=== PATIENT | male | born 1940 | race Caucasian/White ===

== ENCOUNTER → 2018-04-16 13:42 | Outpatient (CLI) | payer MEDICARE, OTHER, SELFPAY ==
--- NOTE | 2018-04-16 | DI.ECHO.S_ITS ---
[place] [facility] +---------+ : : [address] : : : : [id number] : : : : Phone: [phone]+ Echocardiogram Report + + :Name: THOMAS OSULLIVAN Study Date: 04/16/2018 Height: 69 in : :[facility] Exam Location: IS Weight: 212 lb : : Gender: Male BSA: 2.1 m2 : :: 1940 Age: 77 yrs BP: 122/58 mmHg: :Reason For Study: SOB : :Ordering Physician: Dr. Nicole : :Kian Performed By: Isa Diaz : :Referring: JOSEPHINE CESPEDES : + + Interpretation Summary The left ventricle is normal in size. The ejection fraction is estimated to be 60-65%. There has been no significant change in LV EF since the previous study. The right ventricle is mildly dilated. The right ventricular systolic function is normal. There is moderate mitral regurgitation. Compared to the prior echo study, there has been no change in the severity of mitral regurgitation. There is mild to moderate tricuspid regurgitation. Compared to the prior echo exam, there has been no change in TR severity. The right ventricular systolic pressure is estimated to be at least 30 mmHg based on an estimated right atrial pressure of 3 mm Hg. Mild atherosclerotic plaque(s) in the aortic arch. Incidental finding, mutiple hyperechoic mass like structures seen in the liver. These were not visualized on previous exam. Consider US LIVER. Procedure: A two-dimensional transthoracic echocardiogram with color flow and Doppler was performed. The study quality was technically adequate. Comparison is made with the echocardiogram of 02/20/16. The patient had occasional PVCs during the exam. The patient had occasional PACs during the exam. The patient was in sinus bradycardia with heart rates between 47-52 bpm during the exam. Left Ventricle: The left ventricle is normal in size. Proximal septal thickening is noted. There is no echo evidence for significant left ventricular outflow tract obstruction. There is no thrombus. The ejection fraction is estimated to be 60-65%. There has been no significant change since the previous study. There are no focal wall motion abnormalities. Diastolic parameters suggest a relaxation abnormality of the left ventricle, consistent with probable normal filling pressures. Right Ventricle: The right ventricle is mildly dilated. The right ventricular systolic function is normal. Atria: The left atrium is moderately dilated. The left atrium has remained unchanged in size since the prior echo exam. Right atrial size is normal. There is no Doppler evidence for an interatrial shunt. Mitral Valve: The mitral valve leaflets appear mildly thickened, but open well. There is mild mitral annular calcification. The mitral valve leaflets are mildly calcified. There is moderate mitral regurgitation. Compared to the prior echo study, there has been no change in the severity of mitral regurgitation. Aortic Valve: The aortic valve is trileaflet. There is mild aortic valve sclerosis. The aortic valve opens well. There is no aortic valve stenosis. There is trace aortic regurgitation. Tricuspid Valve: Fatty tricuspid annulus. There is mild to moderate tricuspid regurgitation. The right ventricular systolic pressure is estimated to be at least 30 mmHg based on an estimated right atrial pressure of 3 mm Hg. Compared to the prior echo exam, there has been no change in TR severity. Pulmonic Valve: The pulmonic valve is not well visualized. There is a trace or physiologic amount of pulmonic regurgitation. Great Vessels: The aortic root is normal size. The ascending aorta is normal in size. The aortic arch is normal in size. Mild atherosclerotic plaque(s) in the aortic arch. The pulmonary is not well visualized. The IVC is of normal diameter and collapses greater than 50% with a sniff. This suggests a low right atrial pressure of 3 mm Hg. Pericardium/ Pleura There is no pericardial effusion. There is no pleural effusion. MMode/2D Measurements & Calculations LVIDd: 4.5 cm LVOT diam: 2.3 cm LVIDs: 3.5 cm Ao root diam: 3.7 cm FS: 24.1 % asc Aorta Diam: 3.6 cm EPSS: 0.51 cm Ao Arch Diam (Prox Trans): 3.2 cm IVSd: 0.89 cm LVPWd: 1.0 cm LV rosario. diameter/BSA (cm/m^2): 2.1 LV sys. diameter/BSA (cm/m^2): 1.6 LA A2 area: 29.7 cm2 RA long axis: 5.6 cm LA A4 area: 24.0 cm2 RA area: 15.4 cm2 LA length (vol): 6.0 cm RA vol: 36.0 ml LA vol: 101.1 ml RA : 17.0 ml/m2 LA vol index: 47.7 ml/m2 IVC diam: 1.6 cm RVD1 (basal): 4.3 cm RVD2 (mid): 3.3 cm TAPSE: 1.5 cm Doppler Measurements & Calculations Ao V2 max: 93.2 cm/sec LVOT Max Garrett: 70.4 cm/sec Ao V2 mean: 64.0 cm/sec LV V1 max P.0 mmHg Ao max P.5 mmHg LV V1 VTI: 14.6 cm Ao mean P.8 mmHg LEN(I,D): 3.6 cm2 Ao V2 VTI: 17.0 cm LEN(V,D): 3.2 cm2 sev ratio: 0.85 LEN indexed to BSA (cm^2/m^2): 1.7 MV E max garrett: 57.1 cm/sec TR max garrett: 259.2 cm/sec MV A max garrett: 62.4 cm/sec TR max P.9 mmHg MV E/A: 0.92 PA V2 max: 68.6 cm/sec Med Peak E' Garrett: 6.6 cm/sec PA V2 mean: 42.4 cm/sec E/E' med: 8.6 PA mean P.86 mmHg Lat Peak E' Garrett: 7.3 cm/sec PA pr(Accel): 31.6 mmHg E/E' lat: 7.9 E/e' average: 8.2 MV dec time: 0.22 sec MV P1/2t: 64.2 msec MV P1/2t max garrett: 56.8 cm/sec MVA(P1/2t): 3.4 cm2 Reading Physician:PM
== END ==
PROVIDERS: Family Provider Internal Medicine Cardiovascular Disease; PCP Family Medicine; Visit Provider Family Medicine
DX: I08.1 Rheumatic disorders of both mitral and tricuspid valves (principal); R06.02 Shortness of breath; I70.0 Atherosclerosis of aorta; R16.0 Hepatomegaly, not elsewhere classified
CPT/HCPCS: 93306

== ENCOUNTER → 2018-04-26 17:59 | Outpatient (CLI) | payer MEDICARE, OTHER, SELFPAY ==
--- NOTE | 2018-04-30 07:33 | PM.PFT.1 ---
Pulmonary Function Test Referral & Results Date Patient Seen: 04/26/18 Requesting provider: Sylvester Langston Indication: Dyspnea upon exertion Results: The spirometry demonstrates an FVC of 1.92 L which is 47% of predicted. The FEV1 was measured at 1.27 L which is 43% of predicted. The FEV1/FVC ratio was 66 which is 91% of predicted. Following the administration of bronchodilator there was 17% improvement in FEV1 and a 67% improvement in FEF 25-75%. Lung volumes show an SVC of 2.03 L which is 47% of predicted. The diffusing capacity was measured at 18.53 which is 59% of predicted. No hemoglobin value was provided, so no correction for potential anemia could be made, if appropriate. The maximum voluntary ventilation was significantly reduced Interpretation: This study demonstrates moderately severe obstructive lung disease with some limited evidence of benefit following bronchodilator based on 67% improvement in FEF 25-75% which would indicate small airway flow improvement there is also improvement in FEV1 although this fails to meet the criteria for significance at only 17% There is also moderately severe restrictive lung disease based on reduction SVC There is also moderately severe reduction in diffusing capacity suggesting significant disease at the capillary alveolar level Altogether this is consistent with moderately severe COPD Clinical correlation suggested
== END ==
PROVIDERS: Family Provider Internal Medicine Cardiovascular Disease; PCP Family Medicine; Visit Provider Family Medicine
DX: R06.09 Other forms of dyspnea (principal)
CPT/HCPCS: 94010; 94060; 94726; 94729

== ENCOUNTER → 2018-04-28 10:45 | Outpatient (CLI) | payer MEDICARE, OTHER, SELFPAY ==
--- NOTE | 2018-04-28 | DI.RAD.S_ITS ---
PROCEDURE: XR CHEST 2V INDICATIONS: DYSPNEA ON EXERTION TECHNIQUE: 2 views of the chest were acquired. COMPARISON: [facility], , CHEST 2 VIEW, 10/24/2016, 13:31. FINDINGS: Surgical changes and devices: None. Lungs and pleura: No pleural effusions or pneumothorax. Consolidative opacity measuring 5.7 x 3.2 cm projecting in left upper lobe. This appears new since prior study. The lungs are hyperinflated. Mediastinum: Mediastinal contours are normal. Heart size is normal. Bones and chest wall: No suspicious bony abnormalities. Soft tissues appear unremarkable. IMPRESSION: Masslike consolidation projecting in the left upper lobe. Recommend further evaluation with noncontrast chest CT as this is suspicious for neoplasm. Please correlate clinically. Dictated by: Landon Gross M.D. on 04/28/2018 at 13:21 Approved by: Landon Gross M.D. on 04/28/2018 at 13:26
== END ==
PROVIDERS: Family Provider Internal Medicine Cardiovascular Disease; PCP Family Medicine; Visit Provider Family Medicine
DX: R06.09 Other forms of dyspnea (principal); R91.1 Solitary pulmonary nodule
CPT/HCPCS: 71046

== ENCOUNTER → 2018-04-29 10:04 | Outpatient (CLI) | payer MEDICARE, OTHER, SELFPAY ==
--- NOTE | 2018-04-29 | DI.US.S_ITS ---
PROCEDURE: US ABDOMEN COMPLETE INDICATIONS: LIVER MASS SEEN ON ECHOCARDIOGRAM TECHNIQUE: Real-time scanning was performed of the abdominal and retroperitoneal organs, with image documentation. COMPARISON: [facility], CT, IVP (ABD & PEL WWO CONTRAST), 10/06/2016, 9:05. FINDINGS: Liver: Innumerable heterogeneously echogenic and solid-appearing masses are seen scattered throughout the visualized liver parenchyma with the largest lesion measures approximately 4.6 cm in size in right lobe of liver. Hepatomegaly is seen with the liver length measures 23 cm. No gross intrahepatic biliary duct dilatation is seen. Gallbladder: Gallbladder contains echogenic material which could represent non-mobile stones versus soft tissue masses. No significant gallbladder wall thickening is noted. No sonographic Espitia's sign. Biliary ducts: Intrahepatic bile ducts are non-dilated. Extrahepatic bile duct caliber measures 4 mm. Normal is 6-7 mm or less in diameter, or 10 mm or less post-cholecystectomy. Pancreas: Visualized portions of the pancreas are sonographically normal. Spleen: Spleen is normal in size and homogeneous in echotexture. Kidneys: Kidneys are normal in size and echotexture. Right kidney measures 11.2 cm long; left kidney measures 9.3 cm long. No hydronephrosis. A 1 cm nonobstructing stone is noted in lower pole of left kidney. No solid masses. Aorta: Visualized aorta is normal in caliber at less than 3 cm. Iliacs: Proximal common iliac arteries are normal in caliber at less than 2.5 cm. IVC: Intrahepatic inferior vena cava is patent. Miscellaneous: No free abdominal fluid. IMPRESSION: 1. Hepatomegaly. Numerous solid lesions scattered throughout visualized liver parenchyma suspicious for extensive liver metastatic disease. 2. Heterogeneously echogenic material within gallbladder lumen suspicious for cholelithiasis versus soft tissue mass within gallbladder lumen. No sonographic Sepitia's sign. 3. No biliary ductal dilatation. 4. Nonobstructing left renal stone. No hydronephrosis. Findings were called to the referring physician's office at 11:20 AM on 04/29/18. Dictated by: Benito Choe M.D. on 04/29/2018 at 11:12 Approved by: Benito Choe M.D. on 04/29/2018 at 11:21
== END ==
PROVIDERS: Family Provider Internal Medicine Cardiovascular Disease; PCP Family Medicine; Visit Provider Family Medicine
DX: R16.0 Hepatomegaly, not elsewhere classified (principal)
CPT/HCPCS: 76700

== ENCOUNTER → 2018-04-30 16:56 | Outpatient (CLI) | payer MEDICARE, OTHER, SELFPAY ==
[2018-04-30 19:11] LABS: BUN Creatinine Ratio 13.8 (6-22); Blood Urea Nitrogen 18 mg/dL (9-20); Estimated Glomerular Filt Rate 53.7 mL/min (>60)
== END ==
PROVIDERS: Family Provider Internal Medicine Cardiovascular Disease; PCP Family Medicine; Visit Provider Family Medicine
DX: N18.3 Chronic kidney disease, stage 3 (moderate) (principal)
CPT/HCPCS: 36415; 82565; 84520

== ENCOUNTER → 2018-05-03 12:56 | Outpatient (CLI) | payer MEDICARE, OTHER, SELFPAY ==
--- NOTE | 2018-05-03 | DI.CT.S_ITS ---
PROCEDURE: CT CHEST ABD PEL W CON INDICATIONS: UPPER LEFT LOBE LUNG MASS TECHNIQUE: After the administration of oral and intravenous contrast, 5 mm thick sections acquired from the lung apices to the symphysis. 5 mm coronal and sagittal reformats were performed, with additional 7 mm coronal MIP reformats through the lungs. For radiation dose reduction, the following was used: automated exposure control, adjustment of mA and/or kV according to patient size. COMPARISON: [facility], CR, XR CHEST 2V, 04/28/2018, 10:29. [facility], US, US ABDOMEN COMPLETE, 04/29/2018, 10:15. FINDINGS: Image quality: Excellent. CHEST: Lungs and pleura: The patient is a 4.5 x 2.7 x 4 cm soft tissue density mass in posterior aspect of left upper to midlung field involving superior segment of left lower lobe just posterior to the oblique fissure. 5 mm nodular density in central portion of left upper lobe is seen series 7 image 21. 6 mm nodular density is noted in the anterolateral aspect of right upper lobe series 7 image 25. 7 mm nodular density in right upper lobe near apex is seen. Series 7 image 11. Tiny 2-3 mm nodular densities are noted in lateral periphery of the right apex. 4 mm calcified granuloma in posterior and medial aspect of right lung base is seen. No pleural effusions or pneumothorax. Central and peripheral airways appear patent and normal in caliber. Mediastinum: Heart size is mildly enlarged. No pericardial effusion. No mediastinal or hilar adenopathy by size criteria. 7 mm calcified lymph node in right periesophageal space is seen. Thoracic aorta and central pulmonary arteries are normal in size. Esophagus is normal in caliber. No hiatal hernia. Chest wall: No axillary or supraclavicular adenopathy by size criteria. Thyroid gland is normal in size. A 4 mm hypodense area involving midpole of the right thyroid lobe is seen. ABDOMEN: Solid organs: Liver is enlarged and containing innumerable hypodense lesions scattered throughout liver parenchyma consistent with extensive hepatic metastatic disease. Largest lesion measures 5.4 x 5.9 cm in size involving inferior aspect of anterior segment right hepatic lobe. Gallbladder is distended with ill-defined soft tissue density within the dependent portion of gallbladder lumen with questionable diffuse gallbladder wall thickening which was also seen on previous ultrasound. Biliary system is non dilated. Pancreas enhances normally. Spleen is normal in size and enhancement. Calcified granuloma are seen scattered in pancreatic parenchyma. Nodular thickening of bilateral adrenal glands are seen with suggestion of a 1.3 x 1.4 cm right adrenal hypodense nodule and a 1 x 1.5 cm left adrenal hypodense nodule. Atrophic appearing left kidney is seen with large staghorn calculus involving upper to midpole of left kidney, unchanged from previous study. Left extrarenal pelvis is again seen. No obstructing renal stone hydronephrosis. No perinephric fluid collection. Peritoneum and bowel: Bowel loops demonstrate normal wall thickness and caliber. No free fluid or air. Appendix is visualized and is within normal limits. Nodes and vessels: No retroperitoneal or mesenteric adenopathy by size criteria. Aorta and inferior vena cava are normal in size. Miscellaneous: No ventral hernias. PELVIS: Genitourinary: There is mild diffuse bladder wall thickening, no gross discrete bladder wall mass. Enlarged prostate gland is seen with mass effect of floor of urinary bladder. Miscellaneous: No inguinal hernias or adenopathy. Bones: No suspicious bony lesions. No vertebral body compression fractures. IMPRESSION: 1. Focal 5 x 2.7 x 4 cm left lower lobe mass highly suspicious for left lung malignancy. Additional subcentimeter nodular densities scattered in bilateral lung keyes as described above, and are concerning for metastatic lung nodules. 2. No gross adenopathy is seen in chest, abdomen or pelvis. 3. Innumerable lesions scattered throughout liver parenchyma suggestive of extensive liver metastasis. 4. Thickened gallbladder wall with hyperdense material within the dependent portion of gallbladder lumen. Finding could represent hyperdense sludge material. Soft tissue mass involving gallbladder cannot be entirely excluded. 5. Bilateral adrenal gland hypodense nodules as above, which could represent adenoma. Adrenal metastasis cannot be excluded. Dictated by: Benito Choe M.D. on 05/03/2018 at 15:49 Approved by: Benito Choe M.D. on 05/03/2018 at 16:12
== END ==
PROVIDERS: Family Provider Internal Medicine Cardiovascular Disease; PCP Family Medicine; Visit Provider Family Medicine
DX: R91.8 Other nonspecific abnormal finding of lung field (principal); K76.9 Liver disease, unspecified; E27.9 Disorder of adrenal gland, unspecified
CPT/HCPCS: 71260; 74177; Q9967

== ENCOUNTER → 2018-05-06 10:03 | Outpatient (CLI) | payer MEDICARE, OTHER, SELFPAY ==
[2018-05-06 11:38] LABS: Platelet Count 303 X10^3/uL (150-400)
[2018-05-06 11:40] LABS: INR 1.7 (0.9-1.3); Prothrombin Time 18.5 SECONDS (10.1-12.7)
== END ==
PROVIDERS: Family Provider Internal Medicine Cardiovascular Disease; PCP Family Medicine; Visit Provider Family Medicine
DX: K76.89 Other specified diseases of liver (principal); R22.2 Localized swelling, mass and lump, trunk
CPT/HCPCS: 36415; 85049; 85610

== ENCOUNTER 2018-05-07 07:28 | Day surgery (SDC) | payer MEDICARE, OTHER, SELFPAY ==
[2018-05-07] VITALS (15 sets, daily range): BP systolic 94–138; BP diastolic 54–78; PULSE 67–77; RESP 14–20; TEMP 36–36.7; O2SAT 94–100; BMI 29.3
--- NOTE | 2018-05-07 | PATH_ITS ---
[facility] Accession Number: [id number] . 01 Material submitted: . LLL . 01 Clinical history: . SUP SEG MASS . 02 Diagnosis: Left Lower Lobe, Core Needle Biopsies: Metastatic malignant melanoma. Please see comment. MRV/05/13/2018 . 02 Comment: As part of routine supplier quality engineering manager, Dr. Potts also reviewed this case and agrees with the diagnosis. Dr. Khan discussed the results with Dr. Langston on 05/13/2018 at 3 p.m. . 02 Electronically signed: . Alpa Khan MD, Pathologist NPI- [id number] . 01 Gross description: . Received in formalin are four needle core biopsies of bermudez-white translucent glistening tissue (lengths: 0.3 cm-1.0 cm, diameters-less than 0.1 cm). Entirely submitted in cassette A1. ([id number]) /MRV . 02 Microscopic: . Immunohistochemical stains were performed to characterize the cells of interest. All control stains showed appropriate reactivity. . Results: CK5-6: Negative. TTF-1: Negative. CK7: Negative. Synaptophysin: Negative. p40: Negative. Cytokeratin LIZET: Negative. Melan-A: Uniformly positive. SOX10: Uniformly positive. S100: Variably positive. PAX8: Negative. GATA3: Negative. Inhibin: Negative. CDX2: Negative. CK20: Negative. PSA: Negative. . Interpretation: The combined positive reactivity of Melan-A, SOX10 and S100 is consistent with malignant melanoma. The other organ-specific markers are all negative. . . * This test was developed and its performance characteristics determined by [employer]. It has not been cleared or approved by the U.S. Food and Drug Administration. The FDA has determined that such clearance or approval is not necessary. This test is used for clinical purposes. It should not be regarded as investigational or for research. . 02 Pathologist provided ICD-10: C78.00 . 02 CPT . 226620, C97075, L00415 Performed at: 01 [facility] [address] [id number] MD Abe Beltran MD Phone: [phone] Performed at: [address] [id number] MD Nicholas Sanchez MD Phone: [phone]
--- NOTE | 2018-05-07 | DI.RAD.S_ITS ---
PROCEDURE: XR CHEST 1V INDICATIONS: post biopsy TECHNIQUE: One view of the chest was acquired. COMPARISON: [facility], CT, CT BIOPSY LUNG LT, 05/07/2018, 8:19. [facility], CT, CT CHEST ABD PEL W CON, 05/03/2018, 13:50. [facility], CR, XR CHEST 2V, 04/28/2018, 10:29. FINDINGS: Surgical changes and devices: None. Lungs and pleura: No pleural effusions or pneumothorax. Lungs are unchanged with a mass lesion superior segment left lower lobe superimposed on the upper third of the lung. Mediastinum: Mediastinal contours appear normal. Heart size is normal. Bones and chest wall: No suspicious bony lesions. Overlying soft tissues appear unremarkable. IMPRESSION: No pneumothorax after CT guided biopsy from posterior approach at the left lower lobe superior segment earlier today. Dictated by: Alvin Sheehan M.D. on 05/07/2018 at 10:41 Approved by: Alvin Sheehan M.D. on 05/07/2018 at 10:42
--- NOTE | 2018-05-07 08:59 | PC.NURSE ---
pt finally in a comfortable position that he can maintain, tilted slightly with his right side down and left side up. able to verbalize his needs, asked to stay very still for biopsy.
[2018-05-07] MEDS: MIDAZOLAM 2 MG/2 ML VIAL 1 MG IV (09:24)
[2018-05-07] MEDS: fentaNYL 100 MCG/2 ML INJ 50 MCG IV (09:24)
--- NOTE | 2018-05-07 09:25 | DI.CT.S_ITS ---
PROCEDURE: CT BIOPSY LUNG LT Sedation analgesia for 15 minutes. INDICATIONS: LUNG MASS TECHNIQUE: The indications, alternatives, benefits, risks, and possible complications of the procedure were communicated to the patient. Informed written consent from the patient was obtained and placed in the chart. Continuous EKG and hemodynamic monitoring was started by trained personnel. The patient was brought to the CT suite and zipper repairer spiral CT imaging was performed with localization grid. The appropriate site for percutaneous access to the biopsy target was marked, was prepped and draped sterilely, and was infused with local anaesthesia. Under CT guidance, a core biopsy trocar and needle set was advanced to the biopsy target, and specimen(s) were obtained. The trocar and needle were then removed, and the patient was sent for post-procedure monitoring. COMPARISON: None. FINDINGS: Biopsy site: Left lower lobe, superior segment Needle: 20 gauge biopsy needle with introducer trocar. Number of passes: 3 Medications: 1% lidocaine for local anaesthesia. IV Fentanyl and Versed for conscious sedation for approximately 15 minutes (see nursing record). Complications: None. IMPRESSION: Successful CT-guided biopsy of left lung mass. Dictated by: Landon Gross M.D. on 05/07/2018 at 9:49 Approved by: Landon Gross M.D. on 05/07/2018 at 9:51
--- NOTE | 2018-05-07 09:36 | PC.NURSE ---
procedure finished at 0916, pt unhooked and transferred to [facility], taken to pacu, handoff to Fuastino GONZALEZ at 0925. pt stable, vss, pt alert and oriented.
--- NOTE | 2018-05-07 09:41 | SUR.PHASEII ---
Pt drowsy, denied pain or sob. VS stable. Call light within reach. Daughter at bedside.
--- NOTE | 2018-05-07 11:11 | SUR.PHASEII ---
pt resting quietly,,daughter at bedside, pt tolerating oral fluids and a sandwich. pt denies any pain or discomfort, band aid on back remains clean and dry.
== END 2018-05-07 12:06 | disposition home or self-care (01) ==
PROVIDERS: Family Provider Internal Medicine Cardiovascular Disease; PCP Family Medicine; Visit Provider Family Medicine
PROC: BB24ZZZ Computerized Tomography (CT Scan) of Bilateral Lungs (ICD-10-PCS; CPT 32408; principal; 2018-05-07 08:30)
DX: C78.02 Secondary malignant neoplasm of left lung (principal); I48.91 Unspecified atrial fibrillation; E78.5 Hyperlipidemia, unspecified; I10 Essential (primary) hypertension; N18.3 Chronic kidney disease, stage 3 (moderate); G47.33 Obstructive sleep apnea (adult) (pediatric); N40.1 Benign prostatic hyperplasia with lower urinary tract symptoms; E66.9 Obesity, unspecified; Z68.41 Body mass index [BMI] 40.0-44.9, adult
CPT/HCPCS: 32405; 71045; 77012; 88305; 88341; 88342; J2250; J3010

== ENCOUNTER → 2018-05-21 07:57 | Outpatient (CLI) | payer MEDICARE, OTHER, SELFPAY ==
--- NOTE | 2018-05-21 | DI.MRI.S_ITS ---
PROCEDURE: MR HEAD/BRAIN WO CON INDICATIONS: MELANOMA STAGING TECHNIQUE: The study was scheduled as a complete brain MRI, without and with us. However, the patient declined to complete the entire examination, secondary to short of breath with lying down. The following imaging sequences were obtained before the patient terminated the examination: Sagittal FLAIR, axial T1 weighted, axial T2 weighted, axial FLAIR, and coronal T2-weighted images. No contrast was administered. COMPARISON: None. FINDINGS: Image quality: Excellent. CSF spaces: Ventricles appear symmetric in size and shape. Basal cisterns are patent. No extra-axial fluid collections. Brain: Intracranial masses are seen. Along the midline anteriorly and inferiorly, there is an apparent extra-axial mass along the cribriform plate, as on series 7 image 13 and on series 5 image 14 that measures 3.5 cm AP by 3.2 cm transversely, with a craniocaudal extent of 2.3 cm. Within the right temporal lobe posteriorly, there is a poorly defined area of apparent irregular mass with apparent hypertrophy vessels within it and surrounding edema, as on series 5 image 6 and on series 7 image 12. The masslike central portion of this lesion measures 4 cm AP by 3.2 cm transversely by 2.8 cm craniocaudal. An additional lesion with central abnormal fluid can be seen within the left frontal lobe superiorly, which measures approximately 2.6 cm AP by 2.47 m transversely, with a craniocaudal length of 2.4 cm. Mild surrounding edema is seen. There is cerebral volume loss for age. There are periventricular and deep white matter chronic small vessel ischemic changes. Brainstem appears normal. Diffusion-weighted images show no acute ischemic insults. No chronic ischemic insults. Normal intravascular flow voids are present. Skull and face: Calvarial bone marrow is normal in signal. Orbits are normal. Sinuses: Sinuses and mastoids are clear. Bilateral gideon bullosa are seen. Moderate leftward nasal septal deviation is incidentally noted, with an associated leftward directed bony nasal septal spur. IMPRESSION: 3 focal intracranial masses are seen, which represent metastatic disease until proven otherwise, particularly given the patient history. Limited examination, which was terminated early by the patient. No contrast was given. Note is made of age-appropriate brain parenchymal volume loss and chronic small vessel ischemic changes. Bilateral gideon bullosa and leftward nasal septal deviation are incidentally noted. Dictated by: Iggyhelga Oconnor M.D. on 05/21/2018 at 9:42 Approved by: Iggy Oconnor M.D. on 05/21/2018 at 9:48
== END ==
PROVIDERS: Family Provider Internal Medicine Cardiovascular Disease; PCP Family Medicine
DX: C43.9 Malignant melanoma of skin, unspecified (principal); C70.0 Malignant neoplasm of cerebral meninges; R06.02 Shortness of breath; J34.3 Hypertrophy of nasal turbinates; J34.2 Deviated nasal septum
CPT/HCPCS: 70551

== ENCOUNTER → 2018-05-25 11:36 | Outpatient (CLI) | payer MEDICARE, OTHER, SELFPAY ==
--- NOTE | 2018-05-25 11:38 | DI.RAD.S_ITS ---
PROCEDURE: XR CHEST 2V INDICATIONS: acute dyspnea w exertion, known metastatic melanoma TECHNIQUE: 2 views of the chest were acquired. COMPARISON: [facility], CT, CT CHEST ABD PEL W CON, 05/03/2018, 13:50. [facility], CR, XR CHEST 1V, 05/07/2018, 10:25. [facility], CR, XR CHEST 2V, 04/28/2018, 10:29. FINDINGS: Surgical changes and devices: None. Lungs and pleura: No right-sided pleural effusions or pneumothorax bilaterally but there is now a slight subpulmonic left effusion not previously present. Lungs are abnormal with a mass lesion at the left upper hemithorax which is little if any changed from the comparison plain film studies from 04/28/18 and 05/07/18. The prior transverse dimension of this mass had been 6.2-6.3 cm and currently measures 6.6 cm. Mediastinum: Mediastinal contours are normal. Heart size is normal. Bones and chest wall: No suspicious bony abnormalities. Soft tissues appear unremarkable. IMPRESSION: No diminishment in size of the left-sided mass lesion. This is located within the superior segment left lower lobe by prior CT scanning, and the previous recent largest transverse dimension was 6.3 cm. It is currently measured at 6.6 cm. This slight change is not necessarily indicative of a definite enlargement. CT scanning could provide a more accurate assessment. Note is made of a small subpulmonic left pleural effusion not previously present. Dictated by: Alvin Sheehan M.D. on 05/25/2018 at 11:53 Approved by: Alvin Sheehan M.D. on 05/25/2018 at 11:57
== END ==
PROVIDERS: Family Provider Internal Medicine Cardiovascular Disease; PCP Family Medicine; Visit Provider Nurse Practitioner Gerontology
DX: C43.9 Malignant melanoma of skin, unspecified (principal); R06.09 Other forms of dyspnea; R06.9 Unspecified abnormalities of breathing; J90 Pleural effusion, not elsewhere classified; R91.8 Other nonspecific abnormal finding of lung field
CPT/HCPCS: 71046

== ENCOUNTER 2018-05-27 06:38 | Day surgery (SDC) | payer MEDICARE, OTHER, SELFPAY ==
[2018-05-27] VITALS (9 sets, daily range): BP systolic 97–112; BP diastolic 53–68; PULSE 64–73; RESP 12–20; TEMP 36.1–36.5; O2SAT 91–98; BMI 28.9
--- NOTE | 2018-05-27 | DI.RAD.S_ITS ---
PROCEDURE: XR CHEST 1V INDICATIONS: port placement TECHNIQUE: One view of the chest was acquired. COMPARISON: [facility], CT, CT CHEST ABD PEL W CON, 05/03/2018, 13:50. [facility], CT, CT BIOPSY LUNG LT, 05/07/2018, 8:19. [facility], CR, XR CHEST 1V, 05/07/2018, 10:25. [facility], CR, XR CHEST 2V, 05/25/2018, 11:41. FINDINGS: Surgical changes and devices: A right-sided chest port is seen, the tip overlying the superior aspect of the right atrium. Lungs and pleura: The patient's known left pulmonary mass is again seen, which can be seen on prior CT dated within the superior segment of the left lower lobe. An incomplete inspiratory result is noted, causing a crowded appearance to the lung markings. No focal infiltrates are seen. No pneumothorax or significant pleural effusions are seen. Mediastinum: Mediastinal contours appear normal. Heart size is normal. Bones and chest wall: No suspicious bony lesions. Age-appropriate bony degenerative changes are seen. Overlying soft tissues appear unremarkable. IMPRESSION: The tip of the right-sided chest port is seen protruding into the right atrium. Left pulmonary mass again seen. Dictated by: Iggy Oconnor M.D. on 05/27/2018 at 8:44 Approved by: Iggy Oconnor M.D. on 05/27/2018 at 8:47
[2018-05-27] MEDS: LACTATED RINGERS 1,000 ML 42 ML IV (07:41)
--- NOTE | 2018-05-27 08:03 | PM.HP.1 ---
History of Present Illness Date Patient Seen: 05/27/18 Time Patient Seen: 08:03 Chief complaint: [id number] PORTACATH PLACEMENT Narrative: The patient is a gentleman with malignant melanoma here for placement of a Port-A-Cath. Patient History Medical History Abdominal pain (Acute) Arthritis (Acute) BPH (benign prostatic hyperplasia) (Acute) Bladder outlet obstruction (Acute) Chronic renal insufficiency, stage III (moderate) (Acute) Constipation (Acute) E. coli infection (Acute) Easy bruisability (Acute) Elevated PSA (Acute) H/O urinary retention (Acute) History of cardioversion (Acute ~05/2016) Metastatic melanoma (Acute) Mitral regurgitation (Acute) Paroxysmal A-fib (Acute) Surgical History H/O cardiac radiofrequency ablation (Acute ~07/2016) History of arthroplasty of left knee (Acute) History of surgical removal of pilonidal cyst (Acute) Hx of cholecystectomy (Acute) Hx of cystoscopy (Acute 10/31/16) Hx of hernia repair (Acute) Hx of lithotripsy (Acute) Hx of prostatectomy (Acute) Hx of tonsillectomy (Acute) S/P TURP (Acute) Status post cataract extraction of both eyes with insertion of intraocular lens (Acute) Family & Social History Family History: Reviewed 05/27/18 by Luciano Sutton MD Social History: household members spouse Tobacco & Substance use: Smoking Status Former smoker alcohol intake current alcohol intake frequency 0-2 drinks per day Meds Home Medications Medication Instructions Recorded Confirmed Type allopurinol 300 mg PO QDAY #0 10/28/16 05/27/18 History atenolol 25 mg PO QDAY #0 10/28/16 05/27/18 History doxazosin 8 mg PO HS #0 10/28/16 05/27/18 History flecainide 100 mg PO Q12H #0 10/28/16 05/27/18 History rivaroxaban [Xarelto] 20 mg PO QDAY #0 10/28/16 05/27/18 History albuterol sulfate [ProAir HFA] 2 puff INHALATION Q4-6H PRN 05/18/18 05/27/18 History Allergies Allergy/AdvReac Type Severity Reaction Status Date / Time sulfamethoxazole Allergy Severe DIFFICULTY Verified 05/07/18 08:38 [SULFAMETHOXAZOLE] BREATHING trimethoprim [TRIMETHOPRIM] Allergy Severe DIFFICULTY Verified 05/07/18 08:38 BREATHING Review of Systems Review of Systems Patient has high blood pressure and AFib he was on Xarelto but that was stopped 2 days ago. He has chronic obstructive pulmonary disease is chronically short of breath. He has a history of lung cancer. Patient walks with a walker he has arthritis in his limbs. Patient denies black or bloody bowel movements. He does have enlarged prostate suffers from urinary retention in the past. His had kidney stones in the past. Has had brain Mets. Wears reading glasses. Exam Vital Signs (past 8 hours): - 05/27/18 07:31 Temperature 97.3 F L Pulse Rate 73 Respiratory Rate 18 Blood Pressure 106/68 Pulse Oximetry 98 Oxygen Delivery Method Room Air Narrative Exam Narrative: Operative no apparent distress. Lungs increased expiratory phase. Heart regular irregularly irregular. Abdomen is soft nontender without mass. No rashes on the skin where plan to place the port. Assessment & Plan Plan: Assessment/Plan Narrative: Patient with melanoma for chemotherapy. He has very poor access peripherally. I was asked place Port-A-Cath. I have discussed the procedure and rationale with him. Risks of bleeding lung collapse DVT which could cause arm swelling or pulmonary embolism that might be lethal and infection were all discussed with him. He appears to understand wishes to proceed.
--- NOTE | 2018-05-27 08:06 | PM.PREOP ---
Pre-operative Note Interval Note Pre-op Check: Yes History & Physical exam performed today by Physician Changes: No
[2018-05-27] MEDS: CEFAZOLIN 2 GM/100 ML FROZ.PIGGY IV (08:19)
--- NOTE | 2018-05-27 08:41 | SUR.OPER ---
Supine on gel mattress OR table, head on one pillow, towel roll under shoulders, left arm secured on padded armboard <90, right arm gel padded and tucked. Padded safety strap to thighs over blanket, tape to lower legs over blanket.
[2018-05-27] MEDS: LIDOCAINE 1% 20 ML INJ INJ (08:51)
[2018-05-27] MEDS: HEPARIN 5,000 UNIT, SODIUM CHLORIDE 0.9% 50 ML IV (08:51)
--- NOTE | 2018-05-27 09:18 | PM.OP.1 ---
Operative Date/Time/Diagnoses Date of procedure: 05/27/18 Time of procedure: 09:08 Pre-op diagnosis: Melanoma of unknown primary. Post-op diagnosis: same Procedure & Clinicians Procedure: Placement of right subclavian Port-A-Cath Same procedure as scheduled: Yes Indications: Difficult peripheral IV access. Placed in anticipation of chemotherapy. Surgeon: Luciano Sutton Click Yes if Unassisted: Yes Anesthesia Type: General Operative Notes Findings: Tip in distal SVC. No evidence of pneumothorax. Closure Type: primary Specimen(s): none sent Implants & Drains: Slim Port-A-Cath Estimated Blood Loss (mL): 5 Blood products transfused: none Procedure in detail: The patient was placed supine on the operating room table underwent general LMA anesthesia. A roll was placed between his shoulders. He was prepped and draped in the usual fashion. Local anesthetic was infiltrated in field block fashion beneath his right clavicle. He is left-hand dominant. Transverse incision was made and carried to the subcu. A pocket was created. Needle was inserted into the subclavian vein. Initially I had difficulty passing the wire and had removed the needle and reinserted. The guidewire passed finally with ease and the needle was removed. Fluoroscopy revealed the tract of the wire to be appropriate. The port and catheter were connected and the catheter tapered to appropriate length. Port was placed in the pocket. Dilator and introducer were passed over the guidewire. The guidewire and dilator were removed leaving the introducer in place. The catheter was inserted through it and advanced. The introducer was peeled away leaving the catheter in good position. The port was secured to the chest wall and was aspirated and flushed with heparinized saline. The subcu was closed with interrupted 3 0 Polysorb. The skin was closed running for Polysorb subcuticular stitch and Steri-Strips. Dressing was applied and patient was extubated and taken recovery room good condition. Postprocedure x-ray shows the tip in the distal SVC and no evidence of a pneumothorax. Complications: none Condition: stable Disposition: PACU Plan for aftercare: Follow-up in office in a week or 2.
--- NOTE | 2018-05-28 15:49 | PC.NURSE ---
Pts dtr called to speak about increased pain and sob. Pt had a PAC placed on 05/27. After reviewing Dr Sutton's notes this was a Right sided entry and his pain is on his left side. XR after procedure showed no evidence of any pneumothorax. After reading Dr. Mathur notes, pt has a large tumor in his left lung with multiple lesions leading to his SOB. No fluid has been see but pt has reported increase in his SOB. He also has a kidney with noted atrophy which may also account for his discomfort on that side. I encouraged his dtr to monitor him and if he develops a fever, SOB continues or worsens, and if he cannot get his pain under control from medication issued from Dr. Sutton, it would warrant an ED evaluation. Pt has agreed to ED visit if sx continue
== END 2018-05-27 10:36 | disposition home or self-care (01) ==
PROVIDERS: Family Provider Internal Medicine Cardiovascular Disease; PCP Family Medicine; Visit Provider Specialist
PROC: (CPT 36561; principal; 2018-05-27 07:45)
DX: C43.9 Malignant melanoma of skin, unspecified (principal); Z45.2 Encounter for adjustment and management of vascular access device; I48.91 Unspecified atrial fibrillation; Z87.891 Personal history of nicotine dependence; I10 Essential (primary) hypertension; J44.9 Chronic obstructive pulmonary disease, unspecified
CPT/HCPCS: 36561; 71045; 76001; C1788; J0690; J1644; J2250; J2704; J3010

== ENCOUNTER → 2018-06-02 12:00 | Oncology outpatient (ONC) | payer MEDICARE, OTHER, SELFPAY ==
[2018-05-18 09:13] VITALS: BP 104/57; PULSE 76; RESP 18; TEMP 36.9; O2SAT 98
--- NOTE | 2018-05-18 09:48 | ONC.CONS ---
History of Present Illness - Data of Consult Consult date: 05/18/18 Primary Care Provider: Sylvester Langston MD - Consult Narrative Narrative: Diagnosis: Metastatic melanoma History of present illness: Jorge Luis Casiano is a 77 year old male who is referred for further evaluation of newly discovered metastatic melanoma. The patient reports that he had been traveling to [facility] when he developed a relatively acute onset of dyspnea on exertion. He returned home and sought medical attention. As part of his evaluation, he had an echocardiogram done that did not show any evidence of congestive heart failure but did suggest possible lesions in the liver. This was followed by an ultrasound of his abdomen. It showed innumerable heterogeneously echogenic and solid appearing masses within the liver. The largest measured approximately 4.6 cm. This was followed by a CT scan of the chest abdomen pelvis on May 03. It disclosed of 4-1/2 cm soft tissue density mass in the posterior aspect of the left upper lobe. There were smaller lesions throughout both lungs in the 5-7 mm range. There was no adenopathy. In the abdomen there was hepatomegaly with innumerable hypodense lesions scattered throughout both lobes of the liver the largest measured 5.4 x 5.9 cm. There was some nodular thickening of the adrenal glands. The left kidney appeared atrophic with a large staghorn calculus. There is no adenopathy. There were no obvious bony lesions. He had a CT-guided biopsy performed of the lung on May 07. Pathology showed metastatic melanoma. Today, the patient's biggest complaint has been constipation and abdominal pain. He has been using a laxative that I think is Colace periodically. His appetite has been low and he has been gradually. He the last 6 months or more. He denies any nausea or vomiting. He has not noted any adenopathy. He does have ongoing dyspnea on exertion that has been getting progressively worse. He gets short of breath just moving around his house. He does have a history of sunburns. He does not have any prior history of melanoma that however. His past medical history is notable for atrial fibrillation with prior ablation procedure. He has a history of kidney stones. He has had prior hernia repairs partial knee replacement. He has had a TURP. He has had prior cataract surgery. His medications include allopurinol atenolol doxazosin flecainide and Xarelto. He reports allergies to sulfa. His family history is notable for mother with squamous cell skin cancers. There is also family history of breast cancer. Social history: He is . He is retired from the . He did smoke for about 25-30 years but quit about 25 years ago. He does have 1 or 2 glasses of wine nightly. CC: Bernard Tafoya MD Home Medications and Allergies Home Medications Medication Instructions Recorded Confirmed Type allopurinol 300 mg PO QDAY #0 10/28/16 05/07/18 History atenolol 25 mg PO QDAY #0 10/28/16 05/07/18 History doxazosin 8 mg PO HS #0 10/28/16 05/07/18 History flecainide 100 mg PO Q12H #0 10/28/16 05/07/18 History rivaroxaban [Xarelto] 20 mg PO QDAY #0 10/28/16 05/07/18 History albuterol sulfate [ProAir HFA] 2 puff INHALATION Q4-6H PRN 05/18/18 05/18/18 History Allergies Allergy/AdvReac Type Severity Reaction Status Date / Time sulfamethoxazole Allergy Severe DIFFICULTY Verified 05/07/18 08:38 [SULFAMETHOXAZOLE] BREATHING trimethoprim [TRIMETHOPRIM] Allergy Severe DIFFICULTY Verified 05/07/18 08:38 BREATHING Medical History - Social History Smoking Status: Former smoker Alcohol Intake: current Alcohol Intake Frequency: 0-2 drinks per day Housing: house Household Members: spouse service: Yes Current Occupational Status: retired Review of Systems - Patient Self-Reported Symptoms SR Constitution: Weight loss/gain, Fatigue/Malaise SR ears, nose, mouth, throat issues: Congestion SR respiratory issues: Shortness of breath, Difficulty breathing, Mucous SR Cardiovascular issues: Shortness of breath with activity or lying flat, Dizzy/lightheaded SR Skin issues: Skin rash or itching SR Gastrointestinal issues: Poor or no appetite, Change in bowel pattern, Constipation, Black/tarry stool, Abdominal pain SR Hematologic issues: Bleeding/bruising Constitutional: weight loss, decreased activity level Eyes: no change in vision Ears, nose, mouth, throat: no headaches Cardiovascular: dyspnea on exertion Respiratory: shortness of breath, no cough Gastrointestinal: change in appetite, abdominal pain, constipation ( ) Exam - Constitutional positive no acute distress, positive obese - Routine HEENT Exam Head: Present: normocephalic, atraumatic Eye: Present: EOMI, PERRL. Absent: conjunctival icterus, scleral injection ENT: Present: mucous membranes moist, oropharynx clear - Routine Neck Exam Present: supple. Absent: lymphadenopathy, thyromegaly - Routine Respiratory Exam Present: Clear to auscultation bilaterally. Absent: rales, wheezes - Routine Cardiovascular Exam Present: RRR, S1, S2. Absent: murmur - Routine Abdominal Exam Present: soft, tenderness, organomegaly Palpation/Percussion: Present: hepatomegaly Comments: The liver edge is palpable about 4-5 fingerbreadths below the costal margin and tender to palpation. There are no other masses palpable. - Routine Extremities Exam Absent: cyanosis, clubbing, edema - Routine Back/Spine Exam Back/Spine: Absent: paraspinal tenderness, vertebral tenderness - Routine Skin Exam Present: intact. Absent: petechiae, rash Comments: He has multiple seborrheic keratoses but I do not see any obvious primary melanoma. - Routine Neurological Exam Present: alert, oriented X3, CN II-XII intact. Absent: sensory deficit, motor deficit - Routine Psychiatric Exam Present: normal affect, normal thought process Results - Imaging CT scan - abdomen: image reviewed CT scan - chest: image reviewed CT scan - pelvis: image reviewed (He has with dominant pulmonary nodule with several smaller nodules through both lungs. He has extensive liver metastases.) Assessment and Plan (1) Melanoma Current visit: Yes Status: Acute 77-year-old man with newly diagnosed widely metastatic melanoma. This is not surgically resectable. His tumor has not yet been tested for BRAF mutations. Will ask pathology to do that. He should have an MRI of his brain to complete his staging. One could consider a PET-CT to evaluate for his primary lesion, however given the extent of his metastases, I am not sure that it would be particularly helpful. We did discuss treatment options today. I review data regarding the role of immunotherapy and improving survival. In patients with melanoma, response rates for immunotherapy or higher than for other cancers. The can approach 50%. Patients who respond can have a deep and long-lasting remissions. Median survival for melanoma is now approaching 5 years. I described nivolumab given intravenously every 2 weeks. We also talked about the combination of nivolumab and ipilumamab. The combination does show higher response rate however significant increase in toxicity. I think given the patient's age and relatively limited performance status that the single agent therapy would be safer for him. Side effects of immunotherapy including risk for dermatitis colitis pneumonitis thyroiditis were described. I did explain that any organ could be involved with autoimmune toxicity. He is anxious to begin therapy as soon as can be practically arranged. We will make referral for port placement. He will need an MRI of the brain to complete his staging. Will ask pathology to test for BRAF him plan on starting treatment with nivolumab as soon as can be practically arranged. He will return to clinic in about 2 weeks for follow-up but sooner should the need arise.
--- NOTE | 2018-05-18 11:12 | ONC.SCHED ---
[facility] [id number] [facility]
[2018-05-20 11:57] LABS: BUN Creatinine Ratio 22.9 (6-22); Blood Urea Nitrogen 32 mg/dL (9-20); Estimated Glomerular Filt Rate 49.3 mL/min (>60)
[2018-05-24] MEDS: SODIUM CHLORIDE 0.9% 1,000 ML 1000 ML IV (12:50)
--- NOTE | 2018-05-25 11:36 | PM.CHEMOCOU ---
Chemotherapy Counseling - History of present illness History of present illness: 77 year old male here today with his and daughter. 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 He is here for chemotherapy counseling. His treatment plan as ordered by Dr Tafoya will include Nivolumab Q14 days. - General New Chemotherapy Patient: Yes Treatment Plan Reviewed: yes - Chemotherapy Counseling Chemotherapy Counseling: Chemotherapy Education: Jorge Luis Sue Oh provided written information on all topics discussed. Written materials printed from www.chemocare.[employer] and www.oncNodeablek.org. Jorge Luis was given an overview of cancer and mechanism of action of cancer cells, that cancer is caused by cells that are dividing rapidly, and out of control. Traditional chemotherapy works by targeting the fast dividing cells and killing them. Chemotherapy affecting healthy cells dividing quickly causes many of the side effects (hair follicles, bone marrow, mucus membranes). Overview of blood cell functions of white cells to fight infection, red cells to carry oxygen, and platelets to stop bleeding was discussed, and that when bone marrow is affected by chemo, there is a decrease in production of these cells. Home care of the patient following chemotherapy was discussed. Body fluids will be contaminated for 48 hours following treatment, and any body fluids handled by caregivers should be handled wearing gloves, surfaces need to be cleaned with soap and water, any soiled linens or clothing need to be washed separately in hot water, toilet lid should be closed when flushing, person cleaning the toilet should wear gloves. How chemotherapy is administered by the RN?s in the clinic, that orders are double checked by pharmacy and checked again by two RN?s prior to administration. Nurses wear protective gear to prevent exposure to them of the chemotherapy agents which can also cause cancer. Cancer center information discussed and written hand out provided listing on-call oncologist available weekends and after hours triage R.N. hours and infusion room guide. New patient binder given to Jorge Luis, which includes clinic names, phone numbers, clinic information, calendar, cancer glossary, and list of resources. Handout on advanced directives Common side effects of chemotherapy were discussed with self care tips for prevention of complications. Information also provided in writing. These included: Low blood counts (anemia, thrombocytopenia, neutropenia) Hair loss (alopecia) Nausea and vomiting Decreased appetite Loss of fertility Diarrhea Mouth sores Constipation Peripheral neuropathy Chemo brain/cognitive changes Fatigue Instructions on when to call your healthcare team or on-call physician immediately: Fever of 100.4 or higher, chills, any signs of infection Shortness of breath, wheezing, difficulty breathing, closing of throat, swelling of face, hives (signs of possible allergic reaction) Chest pain, fast heart beat or feelings of a different heart rhythm Swelling of an extremity with or without pain signs of stroke Instructions on when to call your healthcare team within the next 24 hours Nausea that interferes with ability to eat and unrelieved with prescribed medication Diarrhea (4-6 episodes in 24 hour period). Unusual bleeding or bruising Black or tarry stools, or blood in your stools Blood in the urine pain or burning with urination Extreme fatigue (unable to perform self-care activities) Mouth sores or sore areas in your mouth Bad headache Dizziness or lightheadedness Large weight gain over a short period of time General self-care tips while undergoing treatment discussed were as follows. Written materials were provided covering in detail and additional self care tips. Drink at least 2-3 quarts (8-10 glasses) of no-caffeinated beverages daily unless you are instructed otherwise and empty your bladder frequently Report any concerning symptoms to your healthcare team Avoid crowds and sick people, wash your hands frequently Use a soft bristled toothbrush, rinse three times a day with 1 tsp baking soda or 1 tsp salt mixed with warm water Avoid any mouthwashes or oral and skin products containing alcohol or fragrances Use electric razors to avoid cutting yourself Avoid contact sports or activities that could cause head injury or bleeding Avoid sun exposure, wear SPF 15 or higher, wear protective clothing Get plenty of rest, meter your activities Maintain good nutrition Avoid alcoholic beverages Attend your scheduled appointments and lab draws Treatment regimen reviewed and medications were discussed with attention to specific side effects and self care for the pt?s treatment regimen which includes [nivolumab]. Jorge Luis was provided with literature regarding [nivolumab] and common side effects. Additionally, Jorge Luis was provided with literature regarding the diagnosis of [metastatic melanoma]. Jorge Luis instructed to read literature at home. Keep a list of questions which we are happy to go over at future visits. For any urgent questions please feel free to call any time. - Response to Teaching Response to Teaching: Verbalizes Understanding - Referrals Referrals: Media Operator (60 mis spent w pt and family)
--- NOTE | 2018-05-25 11:42 | P.CHEMO_ITS ---
Chemotherapy Counseling - History of present illness History of present illness: 77 year old male here today with his and daughter. 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 He is here for chemotherapy counseling. His treatment plan as ordered by Dr Tafoya will include Nivolumab Q14 days. - General New Chemotherapy Patient: Yes Treatment Plan Reviewed: yes - Chemotherapy Counseling Chemotherapy Counseling: Chemotherapy Education: Jorge Luis Sue Oh provided written information on all topics discussed. Written materials printed from www.chemocare.[employer] ([place]) and www.oncWrappk.org. Jorge Luis was given an overview of cancer and mechanism of action of cancer cells, that cancer is caused by cells that are dividing rapidly, and out of control. Traditional chemotherapy works by targeting the fast dividing cells and killing them. Chemotherapy affecting healthy cells dividing quickly causes many of the side effects (hair follicles, bone marrow, mucus membranes). Overview of blood cell functions of white cells to fight infection, red cells to carry oxygen, and platelets to stop bleeding was discussed, and that when bone marrow is affected by chemo, there is a decrease in production of these cells. Home care of the patient following chemotherapy was discussed. Body fluids will be contaminated for 48 hours following treatment, and any body fluids handled by caregivers should be handled wearing gloves, surfaces need to be cleaned with soap and water, any soiled linens or clothing need to be washed separately in hot water, toilet lid should be closed when flushing, person cleaning the toilet should wear gloves. How chemotherapy is administered by the RN?s in the clinic, that orders are double checked by pharmacy and checked again by two RN?s prior to administration. Nurses wear protective gear to prevent exposure to them of the chemotherapy agents which can also cause cancer. Cancer center information discussed and written hand out provided listing on- call oncologist available weekends and after hours triage R.N. hours and infusion room guide. New patient binder given to Jorge Luis, which includes clinic names, phone numbers, clinic information, calendar, cancer glossary, and list of resources. Handout on advanced directives Common side effects of chemotherapy were discussed with self care tips for prevention of complications. Information also provided in writing. These included: Low blood counts (anemia, thrombocytopenia, neutropenia) Hair loss (alopecia) Nausea and vomiting Decreased appetite Loss of fertility Diarrhea Mouth sores Constipation Peripheral neuropathy Chemo brain/cognitive changes Fatigue Instructions on when to call your healthcare team or on-call physician immediately: Fever of 100.4 or higher, chills, any signs of infection Shortness of breath, wheezing, difficulty breathing, closing of throat, swelling of face, hives (signs of possible allergic reaction) Chest pain, fast heart beat or feelings of a different heart rhythm Swelling of an extremity with or without pain signs of stroke Instructions on when to call your healthcare team within the next 24 hours Nausea that interferes with ability to eat and unrelieved with prescribed medication Diarrhea (4-6 episodes in 24 hour period). Unusual bleeding or bruising Black or tarry stools, or blood in your stools Blood in the urine pain or burning with urination Extreme fatigue (unable to perform self-care activities) Mouth sores or sore areas in your mouth Bad headache Dizziness or lightheadedness Large weight gain over a short period of time General self-care tips while undergoing treatment discussed were as follows. Written materials were provided covering in detail and additional self care tips. Drink at least 2-3 quarts (8-10 glasses) of no-caffeinated beverages daily unless you are instructed otherwise and empty your bladder frequently Report any concerning symptoms to your healthcare team Avoid crowds and sick people, wash your hands frequently Use a soft bristled toothbrush, rinse three times a day with 1 tsp baking soda or 1 tsp salt mixed with warm water Avoid any mouthwashes or oral and skin products containing alcohol or fragrances Use electric razors to avoid cutting yourself Avoid contact sports or activities that could cause head injury or bleeding Avoid sun exposure, wear SPF 15 or higher, wear protective clothing Get plenty of rest, meter your activities Maintain good nutrition Avoid alcoholic beverages Attend your scheduled appointments and lab draws Treatment regimen reviewed and medications were discussed with attention to specific side effects and self care for the pt?s treatment regimen which includes [nivolumab]. Jorge Luis was provided with literature regarding [nivolumab] and common side effects. Additionally, Jorge Luis was provided with literature regarding the diagnosis of [ metastatic melanoma]. Jorge Luis instructed to read literature at home. Keep a list of questions which we are happy to go over at future visits. For any urgent questions please feel free to call any time. - Response to Teaching Response to Teaching: Verbalizes Understanding - Referrals Referrals: Migrant Leader (60 mis spent w pt and family)
--- NOTE | 2018-05-28 10:12 | ONC.SCHED ---
AMAYA PROGRESS- Spoke to Olya at [facility] this morning at 0938 and she informed that the BRAF results should be back by Thursday or Thursday of next week. She suggested we call her back at [phone] on ThursdayJune 02, if we still have not received the results.
[2018-06-01 08:51] LABS: Add Manual Diff / Slide Review NO; Basophils Percent Auto 0.2 % (0-2); Eosinophils Percent Auto 0.1 % (2-4); Hematocrit 29.5 % (41-53); Hemoglobin 9.3 g/dL (13.5-17.5); Lymphocytes Percent Auto 4.6 % (25-40); Mean Corpuscular HGB Conc 31.5 % (30-36); Mean Corpuscular Hemoglobin 27.7 PG (26-34); Mean Corpuscular Volume 87.8 fL (80-100); Monocytes Percent Auto 8.3 % (3-14); Neutrophils Absolute Auto 7700 /uL (3000-5900); Neutrophils Percent Auto 86.8 % (50-75); Platelet Count 303 X10^3/uL (150-400); Red Blood Cell Count 3.36 X10^6/uL (4.5-5.9); Red Cell Distribution Width 18.1 % (11.6-14.8); White Blood Cell Count 8.9 X10^3/uL (4.5-11.0)
[2018-06-01 09:03] LABS: Alanine Aminotransferase 55 IU/L (21-72); Albumin 2.9 g/dL (3.5-5.0); Alkaline Phosphatase 424 U/L (38-126); Aspartate Aminotransferase 115 IU/L (17-59); BUN Creatinine Ratio 29.2 (6-22); Bilirubin Total 0.7 mg/dL (0.2-1.3); Blood Urea Nitrogen 35 mg/dL (9-20); Calcium 8.2 mg/dL (8.4-10.2); Carbon Dioxide 23 mmol/L (22-32); Chloride 102 mmol/L (98-107); Estimated Glomerular Filt Rate 58.9 mL/min (>60); Glucose 113 mg/dL (80-110); HEMOLYSIS < 15 (0-50); Potassium 4.9 mmol/L (3.4-5.1); Sodium 137 mmol/L (137-145); Total Protein 5.9 g/dL (6.3-8.2)
[2018-06-01 09:09] LABS: Lactate Dehydrogenase 2058 U/L (313-618)
--- NOTE | 2018-06-01 09:13 | ONC.PN ---
PN -Subjective Interval history: Diagnosis: Metastatic melanoma, BRAF negative Interval history: The patient is a 77-year-old man with newly diagnosed metastatic melanoma. Since his last visit here, he has been through an MRI of the brain that did show evidence of bilateral brain metastases. He is not having any headaches. He denies any focal numbness or weakness. He notes that over the last couple of weeks, he has had his port placed. His strength and energy level though have continued to decrease. He is finding it difficult to get up out of bed. He has had some worsening shortness of breath and dyspnea on exertion. His appetite has been poor. He does note some pain in the left upper quadrant of the abdomen and in the ribs. He denies any nausea or vomiting. He has had some constipation which has been ongoing. He has been using some Vicodin for pain which has been somewhat effective although not completely. He denies any fevers chills or sweats. He has had some frequent urination. Overall, he feels like his health has worsened considerably over the last few weeks. - Patient Self-Reported Symptoms SR Constitution: Weight loss/gain, Fatigue/Malaise SR ears, nose, mouth, throat issues: Congestion SR respiratory issues: Shortness of breath, Difficulty breathing, Mucous SR Cardiovascular issues: Shortness of breath with activity or lying flat, Dizzy/lightheaded SR Skin issues: Skin rash or itching SR Gastrointestinal issues: Poor or no appetite, Change in bowel pattern, Constipation, Black/tarry stool, Abdominal pain SR Hematologic issues: Bleeding/bruising Home Medications and Allergies Home Medications Medication Instructions Recorded Confirmed Type allopurinol 300 mg PO QDAY #0 10/28/16 05/27/18 History atenolol 25 mg PO QDAY #0 10/28/16 05/27/18 History doxazosin 8 mg PO HS #0 10/28/16 05/27/18 History flecainide 100 mg PO Q12H #0 10/28/16 05/27/18 History rivaroxaban [Xarelto] 20 mg PO QDAY #0 10/28/16 05/27/18 History albuterol sulfate [ProAir HFA] 2 puff INHALATION Q4-6H PRN 05/18/18 05/27/18 History hydrocodone-acetaminophen [[place]] 1 tab PO Q6H #10 tab 05/27/18 Rx oxycodone [Roxicodone] 5 mg PO Q4-6H PRN 30 Days #60 tab 06/01/18 Rx Allergies Allergy/AdvReac Type Severity Reaction Status Date / Time sulfamethoxazole Allergy Severe DIFFICULTY Verified 05/07/18 08:38 [SULFAMETHOXAZOLE] BREATHING trimethoprim [TRIMETHOPRIM] Allergy Severe DIFFICULTY Verified 05/07/18 08:38 BREATHING Exam - Constitutional positive no acute distress, positive average body habitus, positive chronically ill appearing - Routine HEENT Exam Head: Present: normocephalic, atraumatic Eye: Present: EOMI, PERRL. Absent: scleral injection ENT: Present: mucous membranes moist, oropharynx clear - Routine Neck Exam Present: supple. Absent: lymphadenopathy, thyromegaly - Routine Respiratory Exam Present: Clear to auscultation bilaterally. Absent: rales, wheezes - Routine Cardiovascular Exam Present: RRR, S1, S2. Absent: murmur - Routine Abdominal Exam Present: soft, normoactive bowel sounds, tenderness Comments: He has some mild tenderness along the ribs and in the left upper quadrant. I do not feel any discrete mass here. - Routine Extremities Exam Absent: edema - Routine Neurological Exam Present: alert, oriented X3 - Routine Psychiatric Exam Present: normal affect, normal thought process Results - Labs Laboratory Last Values WBC 8.9 X10^3/uL (4.5-11.0) 06/01/18 08:44 RBC 3.36 X10^6/uL (4.5-5.9) L 06/01/18 08:44 Hgb 9.3 g/dL (13.5-17.5) L 06/01/18 08:44 Hct 29.5 % (41-53) L 06/01/18 08:44 MCV 87.8 fL (80-100) 06/01/18 08:44 MCH 27.7 PG (26-34) 06/01/18 08:44 MCHC 31.5 % (30-36) 06/01/18 08:44 RDW 18.1 % (11.6-14.8) H 06/01/18 08:44 Plt Count 303 X10^3/uL (150-400) 06/01/18 08:44 Neut % (Auto) 86.8 % (50-75) H 06/01/18 08:44 Lymph % (Auto) 4.6 % (25-40) L 06/01/18 08:44 [place] % (Auto) 8.3 % (3-14) 06/01/18 08:44 Eos % (Auto) 0.1 % (2-4) L 06/01/18 08:44 Baso % (Auto) 0.2 % (0-2) 06/01/18 08:44 Neut # (Auto) 7700 /uL (0568-7627) H 06/01/18 08:44 Sodium 137 mmol/L (137-145) 06/01/18 08:44 Potassium 4.9 mmol/L (3.4-5.1) 06/01/18 08:44 Chloride 102 mmol/L (98-107) 06/01/18 08:44 Carbon Dioxide 23 mmol/L (22-32) 06/01/18 08:44 BUN 35 mg/dL (9-20) H 06/01/18 08:44 Creatinine 1.20 mg/dL (0.66-1.25) 06/01/18 08:44 Estimated GFR 58.9 mL/min (>60) L 06/01/18 08:44 BUN/Creatinine Ratio 29.2 (6-22) H 06/01/18 08:44 Glucose 113 mg/dL (80-110) H 06/01/18 08:44 Calcium 8.2 mg/dL (8.4-10.2) L 06/01/18 08:44 Total Bilirubin 0.7 mg/dL (0.2-1.3) 06/01/18 08:44 AST 115 IU/L (17-59) H 06/01/18 08:44 ALT 55 IU/L (21-72) 06/01/18 08:44 Alkaline Phosphatase 424 U/L (38-126) H 06/01/18 08:44 Lactate Dehydrogenase 2058 U/L (313-618) H 06/01/18 08:44 Total Protein 5.9 g/dL (6.3-8.2) L 06/01/18 08:44 Albumin 2.9 g/dL (3.5-5.0) L 06/01/18 08:44 Globulin 3.0 g/dL (1.7-4.1) 06/01/18 08:44 Albumin/Globulin Ratio 1.0 (1.0-2.8) 06/01/18 08:44 Assessment and Plan (1) Melanoma Current visit: Yes Status: Acute 77-year-old man with newly diagnosed widely metastatic melanoma that is BRAF negative. His MRI does show brain metastasis. His performance status is declining. Since he is asymptomatic from his brain metastasis and his other disease seems to be progressing, we will plan on treating with immunotherapy rather than radiation therapy. Today, we discussed whether to proceed with treatment or not. We also talked about the possibility of supportive care or hospice. I did explain that immunotherapy can be effective for melanoma. In patients who do respond responses can be deep in long lasting. However in patients who do not respond, the tumor generally progresses fairly steadily. He does wish to try therapy. We will therefore go ahead with his treatment today. He will return to clinic in about 2 weeks for follow-up. He is getting in adequate pain control with his hydrocodone. I gave him a prescription for oxycodone today.
[2018-06-01 09:39] VITALS: BP 108/59; PULSE 67; RESP 18; TEMP 36.2; O2SAT 99
[2018-06-01] MEDS: NIVOLUMAB 240 MG in SODIUM CHLORIDE 0.9% (CHEMO) 100 ML 248 ML IV (10:06)
[2018-06-01] MEDS: SODIUM CHLORIDE 0.9% 100 ML 21 ML IV (10:06)
[2018-06-01] MEDS: OXYCODONE IR 5 MG TABLET PO (10:17)
--- NOTE | 2018-06-02 10:34 | PC.NURSE ---
Spoke with daughter Aranza. She called because she was asking if IV hydration may be beneficial for her dad. She states she's concerned that her's not getting in enough oral fluids at home. Discussed this and her other concerns regarding nutrition. Called Zoë on cell phone and she said Jorge Luis is sleeping right now but when he gets up she will ask him if he's willing to come in for fluids. She thinks that it would be a good idea. She will call back and let us know a time. Informed her that if he plans on coming in, he'll need to be here by 3 pm.
[2018-06-02 13:16] VITALS: BP 103/56; PULSE 68; RESP 16; TEMP 35.3; O2SAT 99
--- NOTE | 2018-06-02 14:45 | ONC.NAV ---
*Pt declined a Chemo Quilt today.
--- NOTE | 2018-06-28 13:00 | ONC.NAV ---
*Sent bereavement card.
== END ==
PROVIDERS: Family Provider Internal Medicine Cardiovascular Disease; PCP Family Medicine
DX: C43.9 Malignant melanoma of skin, unspecified (principal); C79.31 Secondary malignant neoplasm of brain
CPT/HCPCS: 36415; 36592; 71046; 80053; 82565; 83615; 84520; 85025; 96360; 96361; 96413; 99205; 99214; 99215; J9299

== ENCOUNTER 2018-06-05 02:22 | Inpatient (IN) | payer MEDICARE, OTHER, SELFPAY ==
[2018-06-05 02:27] VITALS: BP 108/55; PULSE 94; RESP 18; TEMP 36.4; O2SAT 97; BMI 28.9
--- NOTE | 2018-06-05 02:43 | ED.ABDPAIN ---
HPI - Abdominal Pain General Chief Complaint: Abdominal Pain Stated Complaint: LUQ pain x3 weeks, hx lung CA Time Seen by Provider: 06/05/18 02:22 Source: patient, family and EMS Mode of arrival: EMS Limitations: no limitations History of Present Illness HPI narrative: 77-year-old former smoker presents by EMS due to intractable left lung pain. This pain has been gradually worsening for the past 3 weeks and is in the region of a newly discovered metastatic lesion. He is under the care of local cancer care has being treated with immunologic so for metastatic melanoma. There is involvement of left lung and brain. Patient denies any neurologic symptoms such as blurred vision, trouble with speech, or focal weakness. He has been taking oxycodone at home is unable to tolerate the level pain. He is interested in speaking with hospice. He had a port placed a few weeks ago MD complaint: abdominal pain Onset (ago): week(s) Pain Consistency: constant Location: LUQ and L flank Severity: severe Severity scale (1-10): 10 Quality: stabbing and aching Radiation: none Migration to: no migration Relieving factors: nothing Exacerbating factors: nothing Associated symptoms: nausea Related Data Home Medications Medication Instructions Recorded Confirmed allopurinol 300 mg PO QDAY #0 10/28/16 06/05/18 atenolol 25 mg PO QDAY #0 10/28/16 06/05/18 doxazosin 8 mg PO HS #0 10/28/16 06/05/18 flecainide 100 mg PO Q12H #0 10/28/16 06/05/18 rivaroxaban [Xarelto] 20 mg PO QDAY #0 10/28/16 06/05/18 albuterol sulfate [ProAir HFA] 2 puff INHALATION Q4-6H PRN 05/18/18 06/05/18 Previous Rx's Medication Instructions Recorded hydrocodone-acetaminophen [[place]] 1 tab PO Q6H #10 tab 05/27/18 oxycodone [Roxicodone] 5 mg PO Q4-6H PRN 30 Days #60 tab 06/01/18 Allergies Allergy/AdvReac Type Severity Reaction Status Date / Time sulfamethoxazole Allergy Severe DIFFICULTY Verified 05/07/18 08:38 [SULFAMETHOXAZOLE] BREATHING trimethoprim [TRIMETHOPRIM] Allergy Severe DIFFICULTY Verified 05/07/18 08:38 BREATHING Review of Systems Review of Systems All systems reviewed & are unremarkable except as noted in HPI and below Constitutional Denies chills, Denies fever(s), Denies lethargy and Reports weakness Eyes Denies change in vision, Denies eye discharge, Denies irritation and Denies loss of vision ENT Ears, Nose, Mouth, and Throat: Denies change in voice, Denies neck pain and Denies sore throat Cardiovascular Reports chest pain, Denies irregular heart rhythm, Denies lightheadedness, Denies palpitations, Reports dyspnea, Denies dyspnea on exertion and Denies orthopnea Respiratory Denies cough, Reports dyspnea, Denies dyspnea on exertion and Denies wheezing Gastrointestinal Gastrointestinal: Denies abdominal pain, Denies change in bowel habits, Denies diarrhea, Reports nausea and Denies vomiting Genitourinary Denies hematuria, Denies flank pain, Denies urinary incontinence and Denies urinary urgency Musculoskeletal Denies neck pain Integumentary/Breasts Denies pruritus, Denies erythema, Denies rash and Denies wounds Neurologic Denies confusion, Denies loss of vision and Reports weakness Psychiatric Denies anxiety, Denies confusion, Denies depression, Denies homicidal ideation and Denies suicidal ideation Endocrine Denies palpitations Hematologic/Lymphatic Denies easy bruising Allergic/Immunologic Denies wheezing PFSH Medical History Abdominal pain (Acute) Arthritis (Acute) BPH (benign prostatic hyperplasia) (Acute) Bladder outlet obstruction (Acute) Chronic renal insufficiency, stage III (moderate) (Acute) Constipation (Acute) E. coli infection (Acute) Easy bruisability (Acute) Elevated PSA (Acute) H/O urinary retention (Acute) History of cardioversion (Acute ~05/2016) Metastatic melanoma (Acute) Mitral regurgitation (Acute) Paroxysmal A-fib (Acute) Surgical History H/O cardiac radiofrequency ablation (Acute ~07/2016) History of arthroplasty of left knee (Acute) History of surgical removal of pilonidal cyst (Acute) Hx of cholecystectomy (Acute) Hx of cystoscopy (Acute 10/31/16) Hx of hernia repair (Acute) Hx of lithotripsy (Acute) Hx of prostatectomy (Acute) Hx of tonsillectomy (Acute) S/P TURP (Acute) Status post cataract extraction of both eyes with insertion of intraocular lens (Acute) Social History household members: spouse and family housing: house Smoking Status: Former smoker alcohol intake: current Exam Narrative Exam Narrative: 77-year-old male obviously very uncomfortable. Initial Vital Signs Initial Vital Signs: Vital Signs Temperature 97.6 F 06/05/18 02:27 Pulse Rate 94 H 06/05/18 02:27 Respiratory Rate 18 06/05/18 02:27 Blood Pressure 108/55 L 06/05/18 02:27 Pulse Oximetry 97 06/05/18 02:27 Const General: cooperative, No comfortable, well developed and acute distress Nutritional Appearance: well nourished Orientation: alert, awake, oriented x3 and not confused HENMT Head: normocephalic and atraumatic Ears: external ears normal and TM's normal bilaterally Nose: external nose normal and No nasal discharge Face and sinus: sinuses nontender, face symmetric, no sinus tenderness and No dry mucous membranes Mouth: oral mucosae normal and moist mucous membranes Teeth and gingiva: dentition normal Throat: tonsils normal and uvula midline Eyes General: appearance normal, both eyes and all related structures Eyelids: eyelids normal Conjunctivae: conjunctivae normal Sclera: sclerae normal Pupils: PERRL EOM: EOM intact bilaterally Neck Neck: normal visual inspection, trachea midline, No lymphadenopathy, No midline deformity and No JVD Lymphatic: No lymphedema Chest Chest: normal inspection of the chest Resp Effort & Inspection: normal respiratory effort, able to speak in complete sentences, no respiratory distress and no use of accessory muscles Auscultation: clear to auscultation bilaterally, no rales, no rhonchi and no wheezes Cardio Rate: regular rate Rhythm: regular rhythm Heart Sounds: no click, no gallops, no murmurs and no rubs Pulses: normal peripheral pulses GI Inspection: non-distended Palpation: soft, no hepatosplenomegaly, No guarding, No pulsatile mass and tender (LUQ pain to palpation) Auscultation: normal bowel sounds Course Orders Ordered: Acetaminophen (Tylenol) 650 mg PO Q6HR PRN PRN Reason: As Needed for Fever/Mild Pain Sodium Chloride (Normal Saline 0.9%) 1,000 mls @ 125 mls/hr IV CONT HARRIETT Last Admin: 06/06/18 01:25 Dose: 125 mls/hr Infusion: 06/06/18 01:02 Dose: 125 mls/hr Admin: 06/05/18 17:02 Dose: 125 mls/hr Admin: 06/05/18 08:52 Dose: 125 mls/hr Infusion: 06/05/18 08:52 Dose: 125 mls/hr Admin: 06/05/18 06:10 Dose: 125 mls/hr [employer] (Dilaudid 6 Mg/30 Ml) 6 mg in 30 mls @ 0 mls/hr IV Q8HR HARRIETT Last Admin: 06/05/18 21:20 Dose: 0 mls/hr Admin: 06/05/18 14:58 Dose: 0 mls/hr Admin: 06/05/18 06:12 Dose: 0 mls/hr Naloxone HCl (Narcan) 0.2 mg IV Q2MIN PRN; Protocol PRN Reason: Opiate Reversal Ondansetron HCl (Zofran) 4 mg IV Q4HR PRN PRN Reason: Nausea And Vomiting Last Admin: 06/05/18 03:00 Dose: 4 mg Discontinued Medications Hydromorphone HCl (Dilaudid) 1 mg IV Q1HR PRN PRN Reason: Pain, Severe (7-10) Last Admin: 06/05/18 03:00 Dose: 1 mg Sodium Chloride (Normal Saline 0.9%) 1,000 mls @ 250 mls/hr IV [facility] Last Infusion: 06/05/18 06:11 Dose: 0 mls/hr Infusion: 06/05/18 04:52 Dose: 250 mls/hr Admin: 06/05/18 03:00 Dose: 250 mls/hr Reevaluation(s) Reevaluation #1: Patient responds appropriately to Dilaudid and does experience some relief Consultations Consultation #1: Dr. Peñaloza is happy to accept this patient on her service Vital Signs - 8 hr 06/06/18 00:45 06/06/18 03:11 Temperature 98.1 F 97.5 F L Pulse Rate 93 H 92 H Respiratory Rate 18 20 Blood Pressure 107/63 126/61 Pulse Oximetry 95 97 MDM - Abdominal Pain Differential Diagnosis Differential diagnosis: Likely abdominal pain Medical Records Attestation: I reviewed the patient's medical records. Lab Data Attestation: I reviewed the patient's lab results. Result diagrams: 06/05/18 02:50 06/05/18 02:50 Lab Results 06/05/18 06/05/18 Range/Units 02:50 02:50 WBC 6.9 (4.5-11.0) X10^3/uL RBC 3.19 L (4.5-5.9) X10^6/uL Hgb 8.9 L (13.5-17.5) g/dL Hct 27.8 L (41-53) % MCV 86.9 (80-100) fL MCH 27.9 (26-34) PG MCHC 32.1 (30-36) % RDW 17.7 H (11.6-14.8) % Plt Count 282 (150-400) X10^3/uL Neut % (Auto) 85.8 H (50-75) % Lymph % (Auto) 6.6 L (25-40) % [place] % (Auto) 7.1 (3-14) % Eos % (Auto) 0.3 L (2-4) % Baso % (Auto) 0.2 (0-2) % Neut # (Auto) 6000 H (6913-2017) /uL Sodium 134 L (137-145) mmol/L Potassium 5.0 (3.4-5.1) mmol/L Chloride 100 (98-107) mmol/L Carbon Dioxide 25 (22-32) mmol/L BUN 35 H (9-20) mg/dL Creatinine 1.20 (0.66-1.25) mg/dL Estimated GFR 58.9 L (>60) mL/min BUN/Creatinine Ratio 29.2 H (6-22) Glucose 84 (80-110) mg/dL Calcium 8.2 L (8.4-10.2) mg/dL MDM Narrative Medical decision making narrative: 77-year-old male advanced cancer and intractable pain requires hospitalization to control his pain. He becomes so uncomfortable and fatigued with any exertion at home that he his stopped drinking water because the energy it takes to urinate creates profound weakness. He and the family wished to meet with group social worker to discuss whether he is likely a good hospice candidate. Discharge Plan Departure Patient Disposition: Admitted As Inpatient Clinical Impression: Cancer related pain, Intractable pain Discharge Date/Time: 06/05/18 04:55 Interventions: ED Discharge Assessment Last Done: 06/05/18 04:51 Admit Date/Time: 06/05/18 04:48 Admit Provider: Fifi Peñaloza
[2018-06-05] MEDS: SODIUM CHLORIDE 0.9% 1,000 ML 250 ML IV (03:00)
[2018-06-05] MEDS: ONDANSETRON 4 MG/2 ML INJ IV (03:00)
[2018-06-05] MEDS: HYDROMORPHONE 1 MG INJ IV (03:00)
[2018-06-05 03:08] LABS: Add Manual Diff / Slide Review NO; Basophils Percent Auto 0.2 % (0-2); Eosinophils Percent Auto 0.3 % (2-4); Hematocrit 27.8 % (41-53); Hemoglobin 8.9 g/dL (13.5-17.5); Lymphocytes Percent Auto 6.6 % (25-40); Mean Corpuscular HGB Conc 32.1 % (30-36); Mean Corpuscular Hemoglobin 27.9 PG (26-34); Mean Corpuscular Volume 86.9 fL (80-100); Monocytes Percent Auto 7.1 % (3-14); Neutrophils Absolute Auto 6000 /uL (3000-5900); Neutrophils Percent Auto 85.8 % (50-75); Platelet Count 282 X10^3/uL (150-400); Red Blood Cell Count 3.19 X10^6/uL (4.5-5.9); Red Cell Distribution Width 17.7 % (11.6-14.8); White Blood Cell Count 6.9 X10^3/uL (4.5-11.0)
[2018-06-05 03:15] LABS: BUN Creatinine Ratio 29.2 (6-22); Blood Urea Nitrogen 35 mg/dL (9-20); Calcium 8.2 mg/dL (8.4-10.2); Carbon Dioxide 25 mmol/L (22-32); Chloride 100 mmol/L (98-107); Estimated Glomerular Filt Rate 58.9 mL/min (>60); Glucose 84 mg/dL (80-110); HEMOLYSIS < 15 (0-50); Sodium 134 mmol/L (137-145)
--- NOTE | 2018-06-05 03:19 | PC.NURSE ---
[id number] on R chest accessed using sterile technique. Blood drawn w/o difficulty and send out to lab. Pt tolerated well.
[2018-06-05 04:51] VITALS: BP 109/65; PULSE 84; RESP 18; O2SAT 97
[2018-06-05 05:16] VITALS: BP 105/66; PULSE 84; RESP 20; TEMP 36.5; O2SAT 95
[2018-06-05 05:21] VITALS: BMI 28.9
[2018-06-05] MEDS: SODIUM CHLORIDE 0.9% 1,000 ML 125 ML IV ×3 (06:10→17:02)
[2018-06-05] MEDS: HYDROMORPHONE PCA 6 MG/30 ML PCA.VIAL IV ×3 (06:12→21:20)
--- NOTE | 2018-06-05 06:51 | PC.NURSE ---
Pt arrived around 0500 via stretcher and was transferred to bed via sliding board. Family at bedside. NS at 125, CUTTER OPERATOR, call light in reach, bed alarm active. oriented pt and family to the room.
[2018-06-05 09:05] VITALS: BP 115/66; PULSE 90; RESP 20; TEMP 36.5; O2SAT 97
--- NOTE | 2018-06-05 11:09 | PC.NURSE ---
Pt's and Daughter here all noc now going home to shower and freshen up then will be back midmorning. Family asked to let Pt sleep for a time. Pt wakes a&o makes needs known pleasantly. 1 person assist up. back at bedside awaiting 3 daughters. Artis Scruggs notified that the family would like to talk to her. Possibly about end of life/ hospice/ or planning for the future. Pt offers no overt c/o discomfort. Using ENTERTAINMENT MANAGER appropriately.
--- NOTE | 2018-06-05 14:45 | PM.HP.1 ---
History of Present Illness Date Patient Seen: 06/05/18 Time Patient Seen: 14:45 Chief complaint: LUQ pain x3 weeks, hx lung CA Narrative: 77-year-old male with a diagnosis of metastatic melanoma presents to the emergency department with intractable pain that is failing outpatient management. Patient had relief of pain with Dilaudid in the emergency room but due to the progression of pain and his underlying illness he was admitted to the hospital for further pain management and monitoring. I met with the patient, his and 3 daughters. His pain is improved with the Dilaudid but at times he will have worsening pain in his left inferior anterior chest. He is pain-free at the time that I am evaluating him. He received his 1st immunotherapy last Friday, June 01, 2018. He apparently was able to get up and walk after the treatment which she has been unable to do for 5 weeks. He has been on oxygen for the last 2 weeks. He then had progressive worsening in his pain so that it was uncontrolled and he stated that he did not want have any further treatment but wanted to discuss his options with hospice. Past medical history: Assessment 1. 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 Tafoya Assessment 2. Previous history of tobacco abuse status post cessation Assessment 3. Atrial fibrillation status post ablation Assessment 4. Hyperlipidemia Assessment 5. Hypertension Assessment 6. Chronic kidney disease, stage III Assessment 7. BPH Assessment 8. Nephrolithiasis Assessment 9. Colonic polyps Assessment 10. Gout Medications include allopurinol 300 mg daily, atenolol 50 mg daily, doxazosin 8 mg daily, ProAir as needed, Xarelto, flecainide Allergies sulfa Past surgical history cardiac ablation 07/23/2016 after 3 cardioversion 2. TURP 09/2006 3. Cataract surgery 4. Hernia 5. 07/26/2007 partial left total knee arthroplasty Social history. Patient is he lives in and [facility] he is retired . He has 3 daughters. Two live locally and 1 lives in [place] Health related behavior: Previous smoked no longer smokes Does not use alcohol on a regular basis Family history: Mom had breast cancer Father of unknown causes No known history of malignant melanoma Patient History Medical History Abdominal pain (Acute) Arthritis (Acute) BPH (benign prostatic hyperplasia) (Acute) Bladder outlet obstruction (Acute) Chronic renal insufficiency, stage III (moderate) (Acute) Constipation (Acute) E. coli infection (Acute) Easy bruisability (Acute) Elevated PSA (Acute) H/O urinary retention (Acute) History of cardioversion (Acute ~05/2016) Metastatic melanoma (Acute) Mitral regurgitation (Acute) Paroxysmal A-fib (Acute) Surgical History H/O cardiac radiofrequency ablation (Acute ~07/2016) History of arthroplasty of left knee (Acute) History of surgical removal of pilonidal cyst (Acute) Hx of cholecystectomy (Acute) Hx of cystoscopy (Acute 10/31/16) Hx of hernia repair (Acute) Hx of lithotripsy (Acute) Hx of prostatectomy (Acute) Hx of tonsillectomy (Acute) S/P TURP (Acute) Status post cataract extraction of both eyes with insertion of intraocular lens (Acute) Family & Social History Social History: household members spouse,family Prior Living Arrangements House Safety & Behavioral: Feels Safe in Current Yes Environment Suicidal Ideation Description None Suicide Plan Description No Plan Tobacco & Substance use: Smoking Status Former smoker alcohol intake current alcohol intake frequency 0-2 drinks per day Substance Use Type does not use Meds Home Medications Medication Instructions Recorded Confirmed Type allopurinol 300 mg PO QDAY #0 10/28/16 06/05/18 History atenolol 25 mg PO QDAY #0 10/28/16 06/05/18 History doxazosin 8 mg PO HS #0 10/28/16 06/05/18 History flecainide 100 mg PO Q12H #0 10/28/16 06/05/18 History rivaroxaban [Xarelto] 20 mg PO QDAY #0 10/28/16 06/05/18 History albuterol sulfate [ProAir HFA] 2 puff INHALATION Q4-6H PRN 05/18/18 06/05/18 History hydrocodone-acetaminophen [[place]] 1 tab PO Q6H #10 tab 05/27/18 06/05/18 Rx oxycodone [Roxicodone] 5 mg PO Q4-6H PRN 30 Days #60 tab 06/01/18 06/05/18 Rx Allergies Allergy/AdvReac Type Severity Reaction Status Date / Time sulfamethoxazole Allergy Severe DIFFICULTY Verified 05/07/18 08:38 [SULFAMETHOXAZOLE] BREATHING trimethoprim [TRIMETHOPRIM] Allergy Severe DIFFICULTY Verified 05/07/18 08:38 BREATHING Review of Systems Review of Systems Negative for visual changes He denies visual hallucinations but sees a bat in the room I am talking to him Denies headaches Denies history of peptic ulcer disease or abdominal pain or GI bleeding Twelve point review of systems is otherwise negative Exam Vital Signs (past 8 hours): - 06/05/18 09:05 Temperature 97.7 F Pulse Rate 90 Respiratory Rate 20 Blood Pressure 115/66 Pulse Oximetry 97 Oxygen Delivery Method Room Air Narrative Exam Narrative: Patient is alert and oriented to person and place He appears pale, is very drowsy HEENT unremarkable, mucous membranes slightly dry Neck: Supple without adenopathy or masses Chest: Decreased breath sounds bilateral bases but no wheezes rhonchi or crackles Cor: Regular rate and rhythm with distant S1 and S2 Abdomen: Obese with ascites and hepatomegaly 10 cm below costal ridge Extremities no edema pulses intact. Ingrown toenail right great toe Objective Labs Result Diagrams: 06/05/18 02:50 06/05/18 02:50 Labs: Laboratory Results - last 24 hr 06/05/18 06/05/18 02:50 02:50 WBC 6.9 RBC 3.19 L Hgb 8.9 L Hct 27.8 L MCV 86.9 MCH 27.9 MCHC 32.1 RDW 17.7 H Plt Count 282 Neut % (Auto) 85.8 H Lymph % (Auto) 6.6 L Atkinson % (Auto) 7.1 Eos % (Auto) 0.3 L Baso % (Auto) 0.2 Neut # (Auto) 6000 H Sodium 134 L Potassium 5.0 Chloride 100 Carbon Dioxide 25 BUN 35 H Creatinine 1.20 Estimated GFR 58.9 L BUN/Creatinine Ratio 29.2 H Glucose 84 Calcium 8.2 L Assessment & Plan Plan: Assessment/Plan Narrative: 60 min spent with patient and family and coordination of care 77-year-old male with recent diagnosis of metastatic melanoma with progressively declining functional status and now requesting hospice treatment Plan: Patient is admitted to the hospital for pain control. He has improved with the Dilaudid. We discussed discontinue IV fluids but the family and the patient wanted to continue everything the same for now. We will continue with IV fluids at 125 cc an hour. Will give a Kaur catheter as needed. He denies anti-inflammatories at that time but they will think about it and let us know. Hospice has been consulted and will see him tomorrow Completion Engineer has been consulted and has met with the patient and myself as well We will reassess condition in the a.m. Code status is DNR Essentially comfort measures at this time per patient request and family's agreement
[2018-06-05 15:38] VITALS: BP 91/55; PULSE 91; RESP 18; TEMP 36.6; O2SAT 96
[2018-06-05 20:05] VITALS: BP 151/80; PULSE 106; RESP 20; TEMP 36.6; O2SAT 96
--- NOTE | 2018-06-05 22:49 | PC.NURSE ---
Evening Shift Note- Patient alert and oriented and able to make needs known to staff. Patient educated on EXPERIMENTAL PLASTICS FABRICATOR use and dosing after stating i dont want to give myself too much. Patient refused dinner this evening, he did however accept a Loretta Yodit when offered. Safety measures in place. Daughter staying in room tonight. Bed alarm activated. Call bower and phone within reach. Will continue to monitor.
[2018-06-06 00:45] VITALS: BP 107/63; PULSE 93; RESP 18; TEMP 36.7; O2SAT 95
[2018-06-06] MEDS: SODIUM CHLORIDE 0.9% 1,000 ML 125 ML IV (01:25)
[2018-06-06 03:11] VITALS: BP 126/61; PULSE 92; RESP 20; TEMP 36.4; O2SAT 97
[2018-06-06] MEDS: HYDROMORPHONE PCA 6 MG/30 ML PCA.VIAL IV (05:52)
--- NOTE | 2018-06-06 06:47 | PC.NURSE ---
Pt currently sitting in the recliner. He had 1 popsicle stick for tax accountant. pt was able to get up with 1pa-FWW to the BSC. Pt is very weak and uncomfortable. pt and family are requesting to go home early today and have hospice come in to their house or have hospice consult to come in early this morning. pt used 1.2mg of his TODDLER GUIDE dilaudid. safety checks. call light in reach.
[2018-06-06 07:40] VITALS: BP 125/62; PULSE 88; RESP 18; TEMP 36.9; O2SAT 93
--- NOTE | 2018-06-06 11:42 | PM.DS.1 ---
History of Present Illness Chief complaint: LUQ pain x3 weeks, hx lung CA Narrative: 77-year-old male with a diagnosis of metastatic melanoma presents to the emergency department with intractable pain that is failing outpatient management. Patient had relief of pain with Dilaudid in the emergency room but due to the progression of pain and his underlying illness he was admitted to the hospital for further pain management and monitoring. I met with the patient, his and 3 daughters. His pain is improved with the Dilaudid but at times he will have worsening pain in his left inferior anterior chest. He is pain-free at the time that I am evaluating him. He received his 1st immunotherapy last Friday, June 01, 2018. He apparently was able to get up and walk after the treatment which she has been unable to do for 5 weeks. He has been on oxygen for the last 2 weeks. He then had progressive worsening in his pain so that it was uncontrolled and he stated that he did not want have any further treatment but wanted to discuss his options with hospice. Past medical history: Assessment 1. 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 Tafoya Assessment 2. Previous history of tobacco abuse status post cessation Assessment 3. Atrial fibrillation status post ablation Assessment 4. Hyperlipidemia Assessment 5. Hypertension Assessment 6. Chronic kidney disease, stage III Assessment 7. BPH Assessment 8. Nephrolithiasis Assessment 9. Colonic polyps Assessment 10. Gout Medications include allopurinol 300 mg daily, atenolol 50 mg daily, doxazosin 8 mg daily, ProAir as needed, Xarelto, flecainide Allergies sulfa Past surgical history cardiac ablation 07/23/2016 after 3 cardioversion 2. TURP 09/2006 3. Cataract surgery 4. Hernia 5. 07/26/2007 partial left total knee arthroplasty Social history. Patient is he lives in and [facility] he is retired . He has 3 daughters. Two live locally and 1 lives in [place] Health related behavior: Previous smoked no longer smokes Does not use alcohol on a regular basis Family history: Mom had breast cancer Father of unknown causes No known history of malignant melanoma Discharge Providers Date of admission: 06/05/18 04:48 Primary care physician: Sylvester Langston MD Consults: 06/05/18 05:02 Consult to Bottom Man Stat Comment: wish to discuss hospice or other appropriate optio Discharge provider: Fifi Peñaloza MD Discharge Date: 06/06/18 Summary Discharge Diagnosis: Metastatic melanoma, end-stage End of life care Hospital Course: Patient admitted to the hospital for pain management. Patient was treated with IV Dilaudid with good improvement in his pain. Patient was hospitalized for approximately 30 hr when patient and family were requesting to go home and meet with hospice at home. Hospice is scheduled to see him at 1:00 a.m. today. We will send him home on hospice with comfort care. We will provide Dilaudid orally 2 mg. We will give morphine concentrate should he begin not taking the Dilaudid. We will provide lorazepam to help with anxiety. We will provide Zofran to help with nausea. Lengthy discussion with the patient and his daughter regarding the medications and side effects and how to use these. As well hospice will meet with him today. Greater than 30 min was spent with patient in counseling and coordination of care. Status at Discharge Cognitive/behavioral status at discharge: Stable Functional status at discharge: bed bound Overall status at discharge: patient is not back to baseline Time Spent with Patient Greater than 30 minutes Exam Vital Signs (past 8 hours): - 06/06/18 07:40 Temperature 98.5 F Pulse Rate 88 Respiratory Rate 18 Blood Pressure 125/62 Pulse Oximetry 93 Oxygen Delivery Method Room Air Narrative Exam Narrative: Patient is somnolent but awakens and recognizes who I am. He denies any pain. He defers this is daughters when asked questions about how his night was. He is no longer eating. He appears pale and icteric He is in no apparent distress Vital signs are stable HEENT: Mucous membranes dry and pink Neck: Supple Chest: Clear to auscultation without wheezes rhonchi or crackles Cor: Regular rate and rhythm and distant S1-S2 Abdomen: Obese, ascites, hepatomegaly, positive bowel sounds, nontender, nondistended Extremities no edema Objective Labs Result Diagrams: 06/05/18 02:50 06/05/18 02:50 Discharge Plan Discharge Plan Patient Disposition: Hospice - Home Discharge Med Rec/Prescriptions Prescriptions: No Action flecainide 100 MG tablet 100 mg PO Q12H Qty: 0 RF: 0 allopurinol 300 MG tablet 300 mg PO QDAY Qty: 0 RF: 0 atenolol 50 MG tablet 25 mg PO QDAY Qty: 0 RF: 0 rivaroxaban [Xarelto] 20 MG tablet 20 mg PO QDAY Qty: 0 RF: 0 doxazosin 8 MG tablet 8 mg PO HS Qty: 0 RF: 0 albuterol sulfate [ProAir HFA] 90 mcg/actuation Hfa Aerosol Inhaler 2 puff INHALATION Q4-6H PRN (Reason: Shortness Of Breath) RF: 0 oxycodone [Roxicodone] 5 mg Tablet 5 mg PO Q4-6H PRN (Reason: Pain (Scale Score 4-6)) 30 Days Qty: 60 RF: 0 hydrocodone-acetaminophen [[place]] 5-325 mg tablet 1 tab PO Q6H Qty: 10 RF: 0 Discharge Data Primary Care Provider: Sylvester Langston Attending Provider: Fifi Peñaloza Admit Date/Time: 06/05/18 04:48
--- NOTE | 2018-06-06 15:48 | CM.IDA ---
DCP Assessment Note: Pt is a 77 yo male, resident of [place]. Pt admitted for intractable pain in the setting of metastatic lung cancer to the brain and liver. Pt was diagnosed in March and has experienced a rapid functional decline. Met w/pt and family at length on Thursday and again at length today to discuss goals of care, DCP and arrangements for safe and timely DC home. On Thursday, reviewed the service Hospice provides and we determined together it was the primary goal of pt and family to keep pt comfortable at home and seek no addtl. treatment. Pt lives w/his spouse Zoë and has three very supportive dtrs. All were available to assist pt and spouse at home. Family requested a Hospice info visit for Thursday in pt's rm, they also requested a hospital bed be delivered [place]. They already had a BSC, w/c and O2 if pt required it. This LAND MANAGEMENT SUPERVISOR faxed referral to [facility] Thursday and info visit was arranged. [facility] would deliver hospital bed Thursday. Today, pt and family were eager to return home. Dr Peñaloza arrived early to complete Rx for po pain medications. This LAND MANAGEMENT SUPERVISOR reviewed medical record and completed the Medical Necessity form for BLS transport. Dr Peñaloza signed this. [facility] was called and BLS was arranged for p/u at 1210. RN/ Pt/family all in agreement. Pt fairly loopy at this time and extremely fatigued, requiring a lot of assist in rm. Updated Lara at [facility]. Faxed DC summary. Info visit to be held at pt's home address [address] in [place]. P: Home today via BLS, Hospice info visit and likely a hospice admission pending. family to assist and keep pt comfortable. Hosp bed being delivered Thursday. SARA Canseco Discharge Planning/Care Management CM Discharge Assessment Start: 06/06/18 15:44 Freq: Status: Discharge Protocol: Document 06/06/18 15:44 KARLIE (Rec: 06/06/18 15:48 KARLIE [id number]) Discharge Planning Assessment Assigned Speech And Language Tutor SARA Ellsworth DPOA/Assigned Designee Name Zoë Casiano, spouse Contact Information [phone] cell, home Advance Directives? Yes History Provided By Patient Family Member Prior Living Arrangements House Household Members spouse family Type of transporation used prior to Relies on Others admit Independent with ADL's No Is patient alert and oriented? Yes: Mostly A+O, but brain mets, pain medication have effected cognition Needs Assistance With Bathing Grooming Meal Prep Toileting Managing Medications Home Chores / Shopping Comment Hospice, see narrative. Whiteboard Updated in Patient Room with Yes name and ext. # of Speech And Language Tutor
== END 2018-06-06 12:24 | disposition hospice, home (50) | DRG 948 ==
LOC: ED 04:39 → AC 07:02
PROVIDERS: Admitting Provider Family Medicine; Emergency Provider Emergency Medicine; Family Provider Internal Medicine Cardiovascular Disease; PCP Family Medicine; Visit Provider Family Medicine
DX: G89.3 Neoplasm related pain (acute) (chronic) (principal); C49.9 Malignant neoplasm of connective and soft tissue, unspecified; C79.51 Secondary malignant neoplasm of bone; C79.31 Secondary malignant neoplasm of brain; I12.9 Hypertensive chronic kidney disease with stage 1 through stage 4 chronic kidney disease, or unspecified chronic kidney disease; N18.3 Chronic kidney disease, stage 3 (moderate); Z87.891 Personal history of nicotine dependence; Z51.5 Encounter for palliative care
CPT/HCPCS: 80048; 85025; 96360; 96361; 96374; 99283; 99284; J1170; J2405